=== PATIENT | male | born 1960 | race Caucasian/White ===

== ENCOUNTER → 2020-08-12 | Outpatient (CLI) | payer OTHER ==
[~2020-08-12] MED LIST: ASA81BEC PO; CETIRIZINE HCL5 MG PO; FISH OIL 1,001000 M3 PO; NOHOMEMEDICATIONS; SUPER THERAVIT1 EACH PO; VITAMIN D31250 MC1 PO
== END ==
LOC: M.LAB 07:17
PROVIDERS: ATTEND Surgery
DX: Z01.812 Encounter for preprocedural laboratory examination (principal); Z20.828 Contact with and (suspected) exposure to other viral communicable diseases

== ENCOUNTER → 2020-08-15 | Day surgery (SDC) | payer OTHER ==
--- NOTE | ~2020-08-15 | OP ---
[facility] [address] [place] [address] OPERATIVE REPORT Name: BUSTER HUFF Room: [facility]#: [id number] Admission: 08/15/20 Attend Phys: Je Vance Discharge: Date of : 56 Report #: [id number] THIS REPORT FOR: //name// cc: Shalini Lewis Christine L DO ~ CC: Shalini Vance DATE OF SERVICE: 08/15/2020 PREOPERATIVE DIAGNOSIS: Left shoulder mass, benign, 6 cm. POSTOPERATIVE DIAGNOSIS: Left shoulder mass, benign, 6 cm. OPERATION: Excision of benign left shoulder, 6 cm mass. SURGEON: Je Vance MD ANESTHESIA: Local monitored. ESTIMATED BLOOD LOSS: Minimal. SPECIMEN: Lipoma. DESCRIPTION OF PROCEDURE: After informed consent was obtained, the patient was brought to the operating room and placed supine. SCDs were placed and working, preoperative antibiotics were administered, and local monitored anesthesia was induced. The patient was placed in the right lateral decubitus position. The area was prepped and draped in the usual sterile fashion. The area was anesthetized with 10 mL of 1% lidocaine plain. A 6 cm incision was made. Cautery dissection was made down through the subcutaneous tissue. Lipoma was identified and excised with cautery. Skin was then closed in 2 layers with a 3-0 Vicryl for the deep layer and 4-0 Monocryl in running subcuticular fashion for the skin. Incision was dressed with Steri-Strips and gauze. COMPLICATIONS: None. DISPOSITION: The patient was taken to recovery in satisfactory condition. By: [id number] Vance MD /nt
[2020-08-15 06:52] LABS: HEMATOCRIT 44.4 % (42.0-52.0); HEMOGLOBIN 15.1 gm/dL (14.0-18.0); MCH 29.8 pg (26.0-34.0); MCHC 34.1 g/dL (28.0-37.0); MCV 87.4 fL (80.0-100.0); RBC 5.08 mil/uL (4.50-6.00); RDW-CV 13.9 % (10.5-14.5); WBC 8.4 thou/uL (4.0-11.0)
[2020-08-15 07:02] LABS: CALCIUM 8.1 mg/dL (8.5-10.1); CREATININE 0.9 mg/dL (0.6-1.3); POTASSIUM 4.2 mmol/L (3.5-5.1)
--- NOTE | 2020-08-15 10:48 | EKG ---
[place] [address] ELECTROCARDIOGRAM REPORT Name: BUSTER HUFF Room: [facility]#: [id number] Admission: 08/15/20 Attend Phys: Je Chaudhari Discharge: Date of : 56 Date of Service: 08/15/2048 Report #: [id number] THIS REPORT FOR: //name// 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
--- NOTE | 2020-08-19 15:11 | PATH ---
[address] [address] PATHOLOGY RPT PROCEDURE Name: BUSTER CAMP Room: [facility].#: [id number] Admission: 08/15/20 Date of : 56 Discharge: Report #: [id number] Path Case #: [id number] [facility] Accession Number: [id number] . 01 Material submitted: . shoulder - LEFT SHOULDER MASS. Modifiers: left . 01 Clinical history: . LEFT SHOULDER MASS . 02 Diagnosis: Left shoulder mass: - Consistent with lipoma. (CHERYL:pit 08/19/2020) QTP 08/19/2020 1222 Local . 02 Electronically signed: . Saurabh Ortiz MD, Pathologist NPI- [id number] . 01 Gross description: . The specimen is received in formalin, labeled "Buster Camp, left shoulder mass" and consists of multiple irregular segments of yellow lobulated tissue measuring 7.3 x 5.5 x 2.1 cm in aggregate. Sectioning shows focal pink-sanabria fibrous tissue and no masses or lesions. 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 (SDY; 08/18/2020) SYU/SYU 08/18/2020 1023 Local . 02 Pathologist provided ICD-10: R22.32 . 02 CPT . 951209 Specimen Comment: A courtesy copy of this report has been sent to [phone] Specimen Comment: Report sent to / DR RAHMAN Performed at: [address], [place], [place] [id number] MD Rony Mejia MD Phone: [phone] Performed at: [address] [facility] [address] [place], [place] [id number] MD Saurabh Ortiz MD Phone: [phone]
== END | disposition home or self-care (01) ==
LOC: M.SUR 05:30
PROVIDERS: ATTEND Surgery
DX: D17.22 Benign lipomatous neoplasm of skin and subcutaneous tissue of left arm (principal); Z98.890 Other specified postprocedural states; Z79.899 Other long term (current) drug therapy; Z90.49 Acquired absence of other specified parts of digestive tract